=== PATIENT | female | born 1960 | race Caucasian/White ===

== ENCOUNTER 2018-12-20 16:53 | Emergency (ER) | payer OTHER ==
[2018-12-20 17:19] VITALS: BP 110/76
--- NOTE | 2018-12-20 17:45 | ED Physician Documentation ---
Upper Respiratory Symptoms - HISTORIAN Historian: patient - HPI Stated Complaint: Cough, sore throat Chief Complaint: Upper Respiratory Symptoms Additional Information: Patient is a 49-year-old female who presents to the ER with c/o sore throat that has been going off/on for 9 months. She states [facility] and [facility] was [facility], they started her on a zpack, albuterol inhaler, and gave her a GI cocktail. She states that she is really trying to quit smoking and she is down to 4 cigs. a day. She denies n/v/d. She complains that her uvula is swollen. Onset: other (off on for 9 months) Duration: intermittent episodes Context: denies: recent foreign travel Severity: mild Associated Symptoms: fever, chills, sinus pain, sore throat Worsened by Deep Breath: No Further Comments: no - ROS CONST/EYES: denies: weakness CVS/RESP: shortness of breath (with coughing) LYMPH: denies: leg swelling, rash GI/: none NEURO/PSYCH: denies: fainting, dizziness MS/SKIN: muscle aches - PAST HX Lung Disease: none PE Risk Factors: none Surgeries/Procedures: none Immunizations: influenza Allergies/Adverse Reactions: Allergies Allergy/AdvReac Type Severity Reaction Status Date / Time No Known Allergies Allergy Verified 12/20/18 17:19 Home Medications: Ambulatory Orders Medication Instructions Recorded Albuterol Sulfate [Proair HFA] 2 inh IH Q4-6 PRN #1 hfa.aer.ad 12/20/18 Amoxicillin/Potassium Clav 875 each PO BID #20 tablet 12/20/18 [Augmentin 875Mg/125Mg] Methylprednisolone [Medrol] 4 mg PO DAILY #21 tab.ds.pk 12/20/18 - SOCIAL HX Smoking History: greater than 1 pack/day Alcohol Use: none Drug Use: none - FAMILY HX Family History: none - VITAL SIGNS Vital Signs: Vital Signs Temp Pulse Resp BP Pulse Ox 97.3 F L 85 17 110/76 96 12/20/18 17:42 12/20/18 17:42 12/20/18 17:42 12/20/18 17:42 12/20/18 17:42 - REVIEWED ASSESSMENTS Nursing Assessment Reviewed: Yes Vitals Reviewed: Yes Upper Respiratory Symptoms - EXAM General Appearance: alert, mild distress EENT: eyes nml inspection, nml ENT inspection, PERRL, pharyngeal erythema Neck: normal inspection Respiratory: rhonchi Abdomen: non-tender, nml bowel sounds CVS: heart sounds normal, equal pulses Skin: color nml, no rash, warm,dry Extremities: non-tender, normal range of motion Neuro/Psych: oriented x3, neuro intact, mood/affect nml Discharge Clincal Impression: Acute sinus infection Prescriptions: Albuterol Sulfate [Proair HFA] 2 inh IH Q4-6 PRN #1 hfa.aer.ad PRN Reason: Shortness of breath/wheezing Amoxicillin/Potassium Clav [Augmentin 875Mg/125Mg] 875 each PO BID #20 tablet Methylprednisolone [Medrol] 4 mg PO DAILY #21 tab.ds.pk Referrals: Primary Doctor,No [Primary Care Provider] - 2 Days Additional Instructions: Take medication as directed Increase fluid intake (no caffeine) Stop Smoking Will send in referral for patient for PFT once she is better. Comments: I sent referral in for patient to have PFT completed here at [facility] after she has completed antibiotic therapy. She will then follow up with me in the clinic in a couple of weeks. Condition: Good Disposition: 01 HOME, SELF-CARE Decision to Admit: NO Decision Time: 17:46
== END 2018-12-20 17:42 | disposition home or self-care (01) ==
LOC: ED 16:53
DX: J01.90 Acute sinusitis, unspecified (principal); Z72.0 Tobacco use
CPT/HCPCS: 99282; 99283

== ENCOUNTER 2019-10-26 10:20 | Outpatient (CLI) | payer OTHER ==
--- NOTE | 2019-10-27 12:23 | Diagnostic Imaging Report ---
PATIENT MR#: [id number] PATIENT PATIENT NAME: ROS STACY DATE OF : 1960 REFERRING PHYSICIAN: Michael Linn EXAM DATE: 10/26/2019 ACCESSION NUMBER: [id number] EXAM DESCRIPTION: CT CHEST W/O CONTRAST CLINICAL HISTORY: 45 year smoking history. Family history lung cancer. TECHNIQUE: Low dose screening CT chest without contrast. COMPARISON: No pertinent prior studies are available at this time. CT CHEST WITHOUT CONTRAST: Lungs: Biapical pleuroparenchymal scarring. Scattered bilateral calcified benign granulomas. No infil trate, masses or effusion. PULMONARY NODULES Right upper lobe image 52, 4 mm image 54, 2 mm image 61, 2 mm image 77, 3 mm image 82, 6 mm, ground glass image 122, 7 mm, subpleural Right lower lobe image 162, 4 mm image 174, 5 mm image 188, 3 mm image 215, 5 mm Left lower lobe image 210, 5 mm Heart: Normal size. No significant effusion. Aorta: Normal caliber. Mediastinum and kenny: Right hilar calcifications consistent with prior granulomatous process. No sign ificant soft tissue lymphadenopathy allowing for limitation of noncontrast technique. Bilateral axillary lymph nodes naveen uring 9 mm in greatest short axis dimension. Bony thorax: No acute findings. Limited upper abdomen: No acute findings. IMPRESSION: Multiple bilateral small pulmonary nodules, the majority located within the right upper and lower lob es. The two largest nodules measure 7 mm and 6 mm in the right upper lobe. Lung-RADS 3, positive, probably benign. Risk of malignancy 1-2%. Follow-up low dose screening lung CT recommended in 6 months (April 2020), to evaluate for change. Size stability at 6 month follow-up will be scored as 2, benign appearance, with return to annual scr eening. Size increase at 6 month follow-up will be scored as 4, suspicious, with additional imaging to follow . Read by: Dr. Wicho Flores Transcribed by: Wicho Flores Transcribed Date: 10/27/2019 12:22:07 PM Electronically signed by: Dr. Wicho Flores Date signed: 10/27/2019 12:22:59 PM
== END 2019-10-26 10:30 ==
LOC: RAD 10:20
PROVIDERS: ATTEND Family Medicine
DX: Z12.2 Encounter for screening for malignant neoplasm of respiratory organs (principal)
CPT/HCPCS: 71250